=== PATIENT | female | born 1975 | race Caucasian/White ===

== ENCOUNTER 2020-04-06 20:43 | Emergency (ER) | payer SELFPAY ==
[~2020-04-06] VITALS: Ht 165.1 cm; Wt 82.0 kg
[2020-04-06 20:49] VITALS: BP 148/94
[2020-04-07 00:34] LABS: CHLORIDE 107 mEq/L (98-107)
[2020-04-07 00:37] LABS: BASOPHILS % 1.1 % (0.0-2.0); EOSINOPHILS % 0.4 % (0.0-5.0); HEMATOCRIT. 32.5 % (36.0-48.0); HEMOGLOBIN. 10.4 g/dL (12.0-16.0); LYMPHOCYTES % 27.2 % (20.0-50.0); MEAN CORPUSCULAR HEMOGLOBIN 22.1 pg (28.0-32.0); MEAN PLATELET VOLUME 8.6 fl (7.4-10.4); MONOCYTES % 9.2 % (2.0-8.0); NEUTROPHILS % 62.1 % (40.0-76.0); PLATELET 363 x1000/uL (130-400); RED BLOOD CELL COUNT 4.71 mill/uL (4.2-5.4); RED CELL DISTRIBUTION WIDTH 17.2 % (11.6-14.6)
[2020-04-07 00:44] LABS: PLATELET ESTIMATE NORMAL
== END 2020-04-07 01:06 | disposition home or self-care (01) ==
LOC: ER 20:43
DX: F41.1 Generalized anxiety disorder (principal); F43.0 Acute stress reaction; Z62.820 Parent-biological child conflict; K75.9 Inflammatory liver disease, unspecified; E87.6 Hypokalemia
CPT/HCPCS: 36415; 71045; 80053; 81025; 84484; 85025; 93005; 99285

== ENCOUNTER 2021-11-17 02:52 | Emergency (ER) | payer SELFPAY ==
[~2021-11-17] VITALS: Ht 165.1 cm; Wt 68.0 kg
[2021-11-17] MEDS ORDERED: LORAZEPAM 2MG/ML CPJ IM STA (02:55)
[2021-11-17 03:15] LABS: HEMATOCRIT. 31.1 % (36.0-48.0); HEMOGLOBIN. 9.4 g/dL (12.0-16.0); MEAN CORPUSCULAR HEMOGLOBIN 17.6 pg (28.0-32.0); MEAN CORPUSCULAR VOLUME 58.3 fL (81.0-99.0); MEAN PLATELET VOLUME 8.5 fl (7.4-10.4); PLATELET 453 x1000/uL (130-400); RED BLOOD CELL COUNT 5.33 mill/uL (4.2-5.4); RED CELL DISTRIBUTION WIDTH 21.1 % (11.6-14.6)
[2021-11-17 03:22] LABS: CLARITY URINE CLEAR (CLEAR); COLOR URINE YELLOW (YELLOW); KETONES URINE NEGATIVE (NEGATIVE); LEUKOCYTE ESTERASE URINE NEGATIVE (NEGATIVE); NITRITE URINE NEGATIVE (NEGATIVE); OCCULT BLOOD URINE NEGATIVE (NEGATIVE); PROTEIN URINE NEGATIVE (NEGATIVE); SPECIFIC GRAVITY URINE 1.003 (1.005-1.030); UROBILINOGEN URINE 0.2 E.U./dL (0.2-1.0)
[2021-11-17 03:36] LABS: *BARBITURATES SCREEN URINE NEGATIVE (NEGATIVE); *BENZODIAZEPINES SCREEN URINE NEGATIVE (NEGATIVE); *COCAINE SCREEN URINE NEGATIVE (NEGATIVE); CANNABINOID URINE SCREEN NEGATIVE (NEGATIVE); METHADONE URINE SCREEN NEGATIVE (NEGATIVE); OPIATES URINE SCREEN NEGATIVE (NEGATIVE); PHENCYCLIDINE URINE SCREEN NEGATIVE (NEGATIVE)
[2021-11-17 03:46] LABS: *AMPHETAMINES SCREEN URINE PRESUMTIVE POSITIVE (NEGATIVE)
[2021-11-17 03:55] LABS: CHLORIDE 110 mEq/L (98-107)
[2021-11-17 04:02] LABS: ETHANOL BLOOD 210 mg/dL
[2021-11-17] MEDS ORDERED: POTASSIUM CHLORIDE 20MEQ TABLET SR PO ONE (04:15)
[2021-11-17] MEDS ORDERED: NALO4SPR BOTHNSTRLS (04:35)
[2021-11-17 04:43] LABS: PLATELET ESTIMATE INCREASED
[2021-11-17] MEDS ORDERED: POTASSIUM CHLORIDE 20MEQ TABLET SR PO SCH (07:15)
[2021-11-17 12:00] VITALS: BP 123/70
== END 2021-11-17 12:16 | disposition home or self-care (01) ==
LOC: ER 02:52
DX: F15.10 Other stimulant abuse, uncomplicated (principal); Y90.7 Blood alcohol level of 200-239 mg/100 ml; F41.9 Anxiety disorder, unspecified; E11.9 Type 2 diabetes mellitus without complications
CPT/HCPCS: 36415; 70450; 80053; 80305; 80307; 80320; 80329; 81003; 81025; 82962; 85025; 93005; 96372; 99285; J2060; G0480